=== PATIENT | female | born 1960 | race Caucasian/White ===

== ENCOUNTER → 2017-02-15 | Outpatient (CLI) | payer OTHER | LOC: FIMAGING 07:32 | PROVIDERS: ATTEND Family Medicine | DX: Z12.31 Encounter for screening mammogram for malignant neoplasm of breast (principal); E04.1 Nontoxic single thyroid nodule | CPT/HCPCS: G0202 ==

== ENCOUNTER 2017-12-16 20:13 | Emergency (ER) | payer OTHER ==
[2017-12-16 20:25] VITALS: BP 131/79
--- NOTE | 2017-12-16 20:58 | EDPHY ---
H & P Stated Complaint: ALIYAH ANKLE EDEMA/L WORSE THAN R X 4 DAYS Source: Patient Exam Limitations: No limitations - Personal History Current Tetanus Diphtheria and Acellular Pertussis (TDAP): Yes - Medical/Surgical History Hx Asthma: No Hx Chronic Respiratory Disease: No Hx Diabetes: No Hx Cardiac Disease: No Hx Renal Disease: No Hx Cirrhosis: No Hx Alcoholism: No Hx HIV/AIDS: No Hx Splenectomy or Spleen Trauma: No Other PMH: DENIES - Social History Smoking Status: Never smoked Time Seen by Provider: 12/16/17 20:57 HPI/ROS: HPI: This is a 57-year-old female who presents with Chief Complaint:ALIYAH ANKLE EDEMA/L WORSE THAN R X 4 DAYS Location: Bilateral ankle Quality: Swelling Duration: 4 days Signs and Symptoms: No bleeding, no radiation, no numbness, no weakness, no tingling, no incontinence, no decreased range of motion, + swelling, no pain, no fever Timing: Worsening Severity: [id number] Context: Patient is generally healthy and recently returned 5 days ago from a 2 week trip to [place]. She noted while she was in [place] that she had some ankle edema but believes that it was related to the heat and humidity. She returned on Wednesday and woke up Wednesday morning noticing that her left calf and ankle were larger than her right calf and ankle. She denies any trauma or injury. She has no skin color changes. She has and ambulation without any difficulties. She denies any paresthesias, weakness, decreased range of motion. She has no shortness of breath or history of CHF. Modifying Factors: None Comment: ROS: see HPI Constitutional: No fever, no chills, no weight loss Eyes: No blurred vision Respiratory: No shortness of breath, no cough Cardiovascular: No chest pain Gastrointestinal: No nausea, no vomiting no diarrhea Genitourinary: No dysuria Extremities: No myalgias Neurologic: No weakness, no numbness Skin: No rashes Hematologic: No bruising, no bleeding MEDICAL/SURGICAL/SOCIAL HISTORY: Medical history: Generally healthy. Does not take any regular medications. Surgical history: Denies Social history: Employed. Never smoked. CONSTITUTIONAL: Extremely well-appearing adult female, awake and alert, no obvious distress HEENT: Atraumatic and normocephalic, PERRL, EOMI. Nares patent; no rhinorrhea; no nasal mucosal edema. Tympanic membranes clear. Oropharynx clear, no exudate and moist pink mucosa. Airway patent. No lymphadenopathy. No meningismus. Cardiovascular: Normal S1/S2, regular rate, regular rhythm, without murmur rub or gallop. PULMONARY/CHEST: Symmetrical and nontender. Clear to auscultation bilaterally. Good air movement. No accessory muscle usage. ABDOMEN: Soft, nondistended, nontender, no rebound, no guarding, no peritoneal signs, no masses or organomegaly. No CVAT. EXTREMITIES: 2/2 pulses, left leg is twice the size of the right leg primarily in the left calf. Positive Homans sign on the left calf. No pitting edema. No palpable cords. No varicose veins. strength 5/5, no deformities, no clubbing, no cyanosis. NEUROLOGICAL: no focal neuro deficits. GCS 15. SKIN: Warm and dry, no erythema. no rash. Good capillary refill. (Dennise Wilson) Constitutional: Initial Vital Signs Temperature (C) 37.0 C 12/16/17 20:23 Heart Rate 75 12/16/17 20:23 Respiratory Rate 16 12/16/17 20:23 Blood Pressure 131/79 H 12/16/17 20:23 O2 Sat (%) 97 12/16/17 20:23 O2 Delivery Mode Room Air Allergies/Adverse Reactions: No Known Allergies Allergy (Unverified 12/16/17 20:23) Home Medications: Medication Instructions Recorded NK [No Known Home Meds] 12/16/17 Medical Decision Making - Diagnostics Imaging Results: Imaging Impressions Extremity Venous Study 12/16/17 21:04 Impression: No deep venous thrombosis bilateral legs. Results called and discussed with Dennise Wilson PA-C, at 12/16/2017 21:54. ED Course/Re-evaluation: Bilateral lower extremity ultrasound ordered Vital signs reviewed upon arrival and stable. Called by radiologist who advised that ultrasound shows no signs of deep venous thrombosis. No signs of neurovascular compromise/tenting of skin/compartment syndrome/ extremities and joints examined above and below area of concern and are neurovascularly intact/cellulitis/gouty arthropathy. Advised patient to wear compression stockings, elevate lower extremities, reduce salt intake This patient was seen under the supervision of my secondary supervising physician. I evaluated care for this patient independently. Discussed this patient with Dr. Murphy who did not see the patient. (Dennise Wilson) I did not see this patient while she was in the emergency department. However her care was discussed with the PA while the patient was in the department. I agree with treatment plan and management (Rudi Murphy) Differential Diagnosis: Leg swelling including but not limited to hypoalbuminemia, congestive heart failure, cor pulmonale, chronic venous stasis and DVT. (Dennise Wilson) Departure - Departure Disposition: Home, Routine, Self-Care Clinical Impression: Pedal edema Condition: Good Instructions: Leg Edema (ED) Additional Instructions: Ultrasound did not show signs of blood clot in either leg. Please wear compression stockings throughout the day, elevate lower extremities to reduce swelling, and reduce salt intake. If symptoms do not improve over the next 5-7 days, follow-up with primary care provider as laboratory studies may be needed to further evaluate. Referrals: Yumiko Eisenberg MD [Primary Care Provider] - 5-7 days, if not improved
== END 2017-12-16 22:05 | disposition home or self-care (01) ==
DX: R60.0 Localized edema (principal)

== ENCOUNTER → 2018-07-29 | Outpatient (CLI) | payer OTHER | LOC: BMCIMAGING 07:49 | PROVIDERS: ATTEND Internal Medicine | DX: Z12.31 Encounter for screening mammogram for malignant neoplasm of breast (principal); Z13.820 Encounter for screening for osteoporosis; M81.0 Age-related osteoporosis without current pathological fracture; Z78.0 Asymptomatic menopausal state ==